=== PATIENT | female | born 1950 | race Caucasian/White ===

== ENCOUNTER 2021-01-06 17:56 | Inpatient (IN) | payer MEDICARE, OTHER ==
[~2021-01-06] VITALS: Ht 154.9 cm; Wt 72.7 kg
--- OUTSIDE RECORDS SUMMARY | 2021-01-06 17:58 | XMS ---
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 Jax has no Care Guidelines for this patient. [place] VISIT COUNT (12 MO.) 1 KATH Rodriguez TOTAL 1 NOTE: Visits indicate total known visits. ED/C VISIT TRACKING (12 MO.) 01/06/2021 17:56 KATH Martinez [place] TYPE: Emergency COMPLAINT: - SHORTNESS OF BREATH INPATIENT VISIT TRACKING (12 MO.) No inpatient visits to display in this time frame [email or web address]
[2021-01-06] MEDS ORDERED: HYDROCHLOROTH12.5 M1 PO (18:09)
--- NOTE | 2021-01-07 15:53 | EKG ---
[facility] [address] [place], [place] [address] Signed Normal sinus rhythm Nonspecific ST abnormality Abnormal ECG No previous ECGs available Confirmed by LIZETTE MURILLO MD ([id number]) on 01/07/2021 3:53:38 PM Electronically Signed By: LIZETTE MURILLO MD 01/07/21 1553 PATIENT NAME: HILDA BARBOSA Electrocardiogram DATE OF : 50 PHYSICIAN: LIZETTE MURILLO MD REPORT #: [id number] REPORT IS CONFIDENTIAL AND NOT TO BE RELEASED WITHOUT AUTHORIZATION
[2021-01-07] MEDS ORDERED: HYDROCODON-ACE1 EA10 PO (16:04)
== END 2021-01-20 23:35 | DRG 208 ==
LOC: ED 17:56 → CCU 19:39 → MS 01-19 18:40 → CCU 01-20 14:45
PROVIDERS: ADMIT Internal Medicine; ATTEND Internal Medicine
PROC: 5A09557 Assistance with Respiratory Ventilation, Greater than 96 Consecutive Hours, Continuous Positive Airway Pressure (ICD-10-PCS; 2021-01-06)
PROC: 8E0ZXY6 Isolation (ICD-10-PCS; 2021-01-06)
PROC: 3E0333Z Introduction of Anti-inflammatory into Peripheral Vein, Percutaneous Approach (ICD-10-PCS; 2021-01-06)
PROC: XW033E5 Introduction of Remdesivir Anti-infective into Peripheral Vein, Percutaneous Approach, New Technology Group 5 (ICD-10-PCS; 2021-01-07)
PROC: 5A1935Z Respiratory Ventilation, Less than 24 Consecutive Hours (ICD-10-PCS; principal; 2021-01-20)
PROC: 0BH17EZ Insertion of Endotracheal Airway into Trachea, Via Natural or Artificial Opening (ICD-10-PCS; 2021-01-20)
PROC: 3E033XZ Introduction of Vasopressor into Peripheral Vein, Percutaneous Approach (ICD-10-PCS; 2021-01-20)
DX: U07.1 COVID-19 (principal); J96.01 Acute respiratory failure with hypoxia; J12.82 Pneumonia due to coronavirus disease 2019; E87.6 Hypokalemia; Z66 Do not resuscitate; I95.9 Hypotension, unspecified; R00.1 Bradycardia, unspecified; E80.6 Other disorders of bilirubin metabolism; Z78.1 Physical restraint status; I10 Essential (primary) hypertension; Z90.710 Acquired absence of both cervix and uterus; Z90.49 Acquired absence of other specified parts of digestive tract; Z98.890 Other specified postprocedural states; Z88.6 Allergy status to analgesic agent; Z88.8 Allergy status to other drugs, medicaments and biological substances; Z79.899 Other long term (current) drug therapy
CPT/HCPCS: 31500; 36600; 71045; 80048; 80053; 81001; 82553; 82803; 83036; 83735; 83880; 84100; 84443; 84484; 85025; 87088; 93005; 93010; 94002; 94640; 94660; 94760; 94799; A9270; C9803; J0171; J1100; J1650; J1815; J1956; J2270; J2370; J2704; J3010; J7030; J7050; J7121; U0003